=== PATIENT | female | born 1960 | race Caucasian/White ===

== ENCOUNTER → 2024-01-12 13:00 | Outpatient (REF) | payer OTHER, SELFPAY | LOC: WDC 13:00 | PROVIDERS: ATTENDING PHYSICIAN Family Medicine | DX: Z12.31 Encounter for screening mammogram for malignant neoplasm of breast (principal) | CPT/HCPCS: 77063; 77067 ==

== ENCOUNTER → 2024-02-01 09:19 | Outpatient (REF) | payer OTHER, SELFPAY | LOC: MRI 3T 09:19 | PROVIDERS: ATTENDING PHYSICIAN Family Medicine | DX: G50.9 Disorder of trigeminal nerve, unspecified (principal) | CPT/HCPCS: 70553; A9575 ==

== ENCOUNTER → 2025-02-20 19:40 | Outpatient (REF) | payer OTHER, SELFPAY | LOC: WDC 19:40 | PROVIDERS: ATTENDING PHYSICIAN Family Medicine | DX: Z12.39 Encounter for other screening for malignant neoplasm of breast (principal); Z12.31 Encounter for screening mammogram for malignant neoplasm of breast | CPT/HCPCS: 77063; 77067 ==

== ENCOUNTER 2025-02-28 06:17 | Day surgery (SDC) | payer OTHER, SELFPAY | END 2025-02-28 08:40 | disposition home or self-care (01) | LOC: GI 06:17 | PROVIDERS: ATTENDING PHYSICIAN Internal Medicine Gastroenterology; FAMILY PHYSICIAN Family Medicine | DX: Z12.11 Encounter for screening for malignant neoplasm of colon (principal); Z80.0 Family history of malignant neoplasm of digestive organs; K57.30 Diverticulosis of large intestine without perforation or abscess without bleeding; K55.20 Angiodysplasia of colon without hemorrhage | CPT/HCPCS: G0105 ==

== ENCOUNTER → 2025-04-05 10:59 | Outpatient (REF) | payer OTHER, SELFPAY | LOC: PAVMRI 10:59 | PROVIDERS: ATTENDING PHYSICIAN Family Medicine; REFERRING PHYSICIAN Neurological Surgery | DX: G50.9 Disorder of trigeminal nerve, unspecified (principal) | CPT/HCPCS: 70553; A9575 ==